=== PATIENT | male | born 1935 | race Caucasian/White ===

== ENCOUNTER 2017-08-19 07:33 | Inpatient (IN) | payer MEDICARE, OTHER ==
[2017-08-16 11:19] VITALS: BMI 24.2
[2017-08-19] MEDS ORDERED: Midazolam 2 MG/2 ML VIAL ONE (10:08)
[2017-08-19] MEDS ORDERED: Iodixanol 320 MG/ML 100 ML BOTTLE IV ONE (10:10)
[2017-08-19] MEDS ORDERED: Perflutren Lipid Microsphere 1.5 ML SUS IV ONE (10:19)
[2017-08-19 10:40] LABS: ARTERIAL BLOOD HGB O2 SAT 96.2 % (95.0-98.0); CARBOXYHEMOGLOBIN 2.1 % (0.5-1.5); DRAW SITE AO; HHB 0.5 % (0.0-5.0); METHEMOGLOBIN 1.2 % (0.0-3.0)
[2017-08-19 10:43] LABS: DRAW SITE PA; VENOUS BLOOD GAS PCO2 45 mmHg (40-60); VENOUS BLOOD PH 7.38 (7.32-7.43)
[2017-08-19] MEDS ORDERED: Metoprolol Succinate 25 mg XL Tab PO SCH (11:15)
[2017-08-19 16:14] VITALS: TEMP 98.6
--- NOTE | 2017-08-19 17:20 | CP.PCM.CON ---
<Cornell Hutson - Last Filed: 08/19/17 20:40> History of Present Illness - History of Present Illness History of Present Illness: PGY1 ICU consult note for Dr. Crews Patient is a 81M with a history of Alzheimer's disease, HTN who was seen by tool setter Dr. Love for cardiac cath today and was found to have triple vessel disease. Patient is currently comfortably resting in bed. Denies chest pain, shortness of breath, headache, abdominal pain, leg pain. Denies prior cardiac history. States he is hungry and would like to eat. Patient is here with his brother at bedside, who are both primarily Macedonian- speaking. PMH: Alzheimer's disease, HTN PSH: cataract surgery Meds: Namenda XR 28mg, Amlodipine 5mg, Lisinopril 10mg, Divalproex 125mg, Naproxen 500mg BID, Strovite 1 tab Allergies: NKDA Social hx: smoked 1ppd x 30 years - quit over 20 years ago, hx of ETOH use - not currently. denies drug use. Review of Systems - Review of Systems All systems: reviewed and no additional remarkable complaints except (as per HPI ) Past Patient History - Past Medical History & Family History Past Medical History?: Yes - Past Social History Smoking Status: Former Smoker - CARDIAC Hx Hypertension: Yes - PULMONARY Hx Respiratory Disorders: Yes (LUNG PAIN PER PT) - NEUROLOGICAL Hx Alzheimer's Disease: Yes - HEENT Hx HEENT Problems: Yes Hx Cataracts: Yes (BILAT IOL) - RENAL Hx Chronic Kidney Disease: No - ENDOCRINE/METABOLIC Hx Endocrine Disorders: No - HEMATOLOGICAL/ONCOLOGICAL Hx Blood Disorders: No - INTEGUMENTARY Hx Dermatological Problems: No - MUSCULOSKELETAL/RHEUMATOLOGICAL Hx Falls: No - GASTROINTESTINAL Hx Gastrointestinal Disorders: No - GENITOURINARY/GYNECOLOGICAL Hx Genitourinary Disorders: Yes (HX SYPHYLSIS ADOLESCENT TREATED) - PSYCHIATRIC Hx Substance Use: No - SURGICAL HISTORY Hx Surgeries: Yes Hx Cataract Extraction: Yes (BILAT IOL) - ANESTHESIA Hx Anesthesia: Yes Hx Anesthesia Reactions: No Hx Malignant Hyperthermia: No Has any member of the family had a problem w/ anesthesia?: No Meds Allergies/Adverse Reactions: Allergies Allergy/AdvReac Type Severity Reaction Status Date / Time No Known Allergies Allergy Verified 08/16/17 11:19 - Medications Medications: Current Medications Aspirin (Aspirin) 325 mg PO DAILY [facility] Last Admin: 08/19/17 16:02 Dose: 325 mg Clopidogrel Bisulfate (Plavix) 600 mg PO DAILY [facility] Last Admin: 08/19/17 16:02 Dose: 600 mg Metoprolol Succinate (Toprol Xl) 25 mg PO DAILY [facility] Last Admin: 08/19/17 16:02 Dose: 25 mg Rosuvastatin Calcium (Crestor) 40 mg PO HS [facility] Last Admin: 08/19/17 16:07 Dose: Not Given Physical Exam - Constitutional Appears: Well, No Acute Distress - Head Exam Head Exam: ATRAUMATIC - Eye Exam Eye Exam: EOMI, Normal appearance - ENT Exam ENT Exam: Mucous Membranes Moist - Neck Exam Neck exam: Positive for: Full Rom - Respiratory Exam Respiratory Exam: Clear to Auscultation Bilateral, NORMAL BREATHING PATTERN. absent: Accessory Muscle Use, Wheezes, Respiratory Distress - Cardiovascular Exam Cardiovascular Exam: REGULAR RHYTHM - Extremities Exam Extremities exam: Positive for: pedal pulses present. Negative for: calf tenderness, pedal edema - Neurological Exam Neurological exam: Alert, Oriented x3 - Psychiatric Exam Psychiatric exam: Normal Affect, Normal Mood - Skin Skin Exam: Dry, Warm Results - Vital Signs Recent Vital Signs: Last Vital Signs Temp 98.6 F 08/19/17 16:00 Pulse 82 08/19/17 16:10 Resp 10 L 08/19/17 16:10 BP 143/80 08/19/17 16:00 Pulse Ox 99 08/19/17 16:10 - Labs Labs: Laboratory Results - last 24 hr 08/19/17 08/19/17 10:35 10:36 Puncture Site Ao Pa pCO2 42 pO2 125 H 40 HCO3 26.7 ABG pH 7.42 ABG Total CO2 28.5 H ABG O2 Saturation 99.5 H ABG Base Excess 2.3 ABG Hemoglobin 15.6 ABG Carboxyhemoglobin 2.1 H POC ABG HHb (Measured) 0.5 ABG Methemoglobin 1.2 Henrique Test Na Na VBG pH 7.38 VBG pCO2 45 VBG HCO3 25.1 VBG O2 Sat (Calc) 79.7 H VBG Base Excess 1.0 Hgb O2 Saturation 96.2 Assessment & Plan - Assessment and Plan (Free Text) Assessment: 81 male with Alzheimers, HTN who presented to the hospital for an elective cardiac cath which reveals triple vessel disease, pending transfer to [facility] for CABG. Plan: Cardiovascular: Supervisor Roving Dr. Love, help appreciated Vitals Q15min Keep head of bed elevated at 30 degrees Dual antiplatelet therapy with ASA 325mg PO daily and Plavix 600mg PO daily Metoprolol 25mg PO Crestor 40mg HS PO Pending transfer to [facility] for CABG. EKG - NSR @81 bpm, normal axis, ST elevations in V1-V3, ST depressions in leads II, III, aVF - Dr. Love made aware of EKG changes. Repeat ekg approx. one hour later - NSR @78 bpm, normal axis, ST elevations in V1-V3, no ST depressions in leads II, III, aVF Trop - 0.0600; f/u two pending trops q8h started on heparin drip Patient's son, Kadeem, called to be informed of EKG changes. Patient's son states that he had not been informed of any results from any cardiac caths, and had not agreed to any transfer to another hospital. He states he does not want his father transferred anywhere. He wants the results from the cardiac cath today so he can get a second and/or third opinion. Resident Haresh informed him of the urgency of the situation and informed him that he will do the best to gather the information and get in contact with Dr. Love. Dr. Love called his medical student Kushal Vyas and resident Haresh spoke to Dr. Love and informed him of the son's wishes. Dr. Love given son's phone number, . He stated that he will call and speak to the son. Dr. Love informed the ICU team that he was enroute to [facility] to evaluate the patient. Upon Dr. Love's arrival to [facility], Patient was interviewed and stated that, "You are the experts. I trust you. Do what you have to due." Dr. Love called [facility] Transfer team and informed them that the transfer needed to be expedited due to emergent EKG changes. Patient appeared comfortable and was hemodynamically stable during examination. Neuro: Patient is alert, oriented, pleasant. Able to follow commands. Neurochecks Prophylactic Care: DVTs: SCDs Case discussed with Dr. Mars Sarabia Haresh PGY1 <Tee Crews - Last Filed: 08/19/17 20:43> Meds - Medications Medications: Current Medications Aspirin (Aspirin) 325 mg PO DAILY [facility] Last Admin: 08/19/17 16:02 Dose: 325 mg Clopidogrel Bisulfate (Plavix) 600 mg PO DAILY [facility] Last Admin: 08/19/17 16:02 Dose: 600 mg Heparin Sodium/Sodium Chloride (Heparin 59408 Units/250ml 1/2 Normal Saline) 25 ,000 units in 250 mls @ 6.84 mls/hr IV .Q24H PRN; Protocol; 12 UNITS/KG/HR PRN Reason: PROTOCOL Last Admin: 08/19/17 18:21 Dose: 12 units/kg/hr, 6.84 mls/hr Metoprolol Succinate (Toprol Xl) 25 mg PO DAILY [facility] Last Admin: 08/19/17 16:02 Dose: 25 mg Rosuvastatin Calcium (Crestor) 40 mg PO HS [facility] Last Admin: 08/19/17 16:07 Dose: Not Given Results - Vital Signs Recent Vital Signs: Last Vital Signs Temp 98.6 F 08/19/17 16:00 Pulse 89 08/19/17 19:25 Resp 17 08/19/17 19:25 BP 145/78 08/19/17 18:51 Pulse Ox 99 08/19/17 19:25 - Labs Labs: Laboratory Results - last 24 hr 08/19/17 08/19/17 08/19/17 10:35 10:36 16:45 Puncture Site Ao Pa pCO2 42 pO2 125 H 40 HCO3 26.7 ABG pH 7.42 ABG Total CO2 28.5 H ABG O2 Saturation 99.5 H ABG Base Excess 2.3 ABG Hemoglobin 15.6 ABG Carboxyhemoglobin 2.1 H POC ABG HHb (Measured) 0.5 ABG Methemoglobin 1.2 Henrique Test Na Na VBG pH 7.38 VBG pCO2 45 VBG HCO3 25.1 VBG O2 Sat (Calc) 79.7 H VBG Base Excess 1.0 Hgb O2 Saturation 96.2 Troponin I 0.0600 Attending/Attestation - Attestation I have personally seen and examined this patient.: Yes I have fully participated in the care of the patient.: Yes I have reviewed all pertinent clinical information: Yes Notes (Text): Today: , August 19, 2017 The Patient was seen and examined at the bedside, Medical records reviewed, and management issues were discussed and formulated with the house staff. I have reviewed all the relevant clinical, laboratory, hemodynamic, radiographic data and medications Events reviewed Pain issues, skin care, head of the bed elevation, glycemic control were addressed. Agree with above resident's assessment and treatment plans of care as transcribed in Dr. Hutson note. Discussed with the patient and his family in details diagnosis, treatment plans and alternatives, Code status: Full code Patient scheduled for transfer to [facility] for possible cardiac intervention
--- NOTE | 2017-08-19 17:43 | CP.PCM.HP ---
Past Patient History - Past Medical History & Family History Past Medical History?: Yes - Past Social History Smoking Status: Former Smoker - CARDIAC Hx Hypertension: Yes - PULMONARY Hx Respiratory Disorders: Yes (LUNG PAIN PER PT) - NEUROLOGICAL Hx Alzheimer's Disease: Yes - HEENT Hx HEENT Problems: Yes Hx Cataracts: Yes (BILAT IOL) - RENAL Hx Chronic Kidney Disease: No - ENDOCRINE/METABOLIC Hx Endocrine Disorders: No - HEMATOLOGICAL/ONCOLOGICAL Hx Blood Disorders: No - INTEGUMENTARY Hx Dermatological Problems: No - MUSCULOSKELETAL/RHEUMATOLOGICAL Hx Falls: No - GASTROINTESTINAL Hx Gastrointestinal Disorders: No - GENITOURINARY/GYNECOLOGICAL Hx Genitourinary Disorders: Yes (HX SYPHYLSIS ADOLESCENT TREATED) - PSYCHIATRIC Hx Substance Use: No - SURGICAL HISTORY Hx Surgeries: Yes Hx Cataract Extraction: Yes (BILAT IOL) - ANESTHESIA Hx Anesthesia: Yes Hx Anesthesia Reactions: No Hx Malignant Hyperthermia: No Has any member of the family had a problem w/ anesthesia?: No Meds Allergies/Adverse Reactions: Allergies Allergy/AdvReac Type Severity Reaction Status Date / Time No Known Allergies Allergy Verified 08/16/17 11:19 Physical Exam - Constitutional Appears: Well - Head Exam Head Exam: ATRAUMATIC, NORMAL INSPECTION, NORMOCEPHALIC - Eye Exam Eye Exam: EOMI, Normal appearance, PERRL Pupil Exam: NORMAL ACCOMODATION, PERRL - ENT Exam ENT Exam: Mucous Membranes Moist, Normal Exam - Neck Exam Neck exam: Positive for: Normal Inspection - Respiratory Exam Respiratory Exam: Decreased Breath Sounds - Cardiovascular Exam Cardiovascular Exam: REGULAR RHYTHM, +S1, +S2 - GI/Abdominal Exam GI & Abdominal Exam: Diminished Bowel Sounds, Soft - Rectal Exam Rectal Exam: Deferred Results - Vital Signs Recent Vital Signs: Last Vital Signs Temp 98.6 F 08/19/17 16:00 Pulse 82 08/19/17 16:10 Resp 10 L 08/19/17 16:10 BP 143/80 08/19/17 16:00 Pulse Ox 99 08/19/17 16:10 - Labs Labs: Laboratory Results - last 24 hr 08/19/17 08/19/17 08/19/17 10:35 10:36 16:45 Puncture Site Ao Pa pCO2 42 pO2 125 H 40 HCO3 26.7 ABG pH 7.42 ABG Total CO2 28.5 H ABG O2 Saturation 99.5 H ABG Base Excess 2.3 ABG Hemoglobin 15.6 ABG Carboxyhemoglobin 2.1 H POC ABG HHb (Measured) 0.5 ABG Methemoglobin 1.2 Henrique Test Na Na VBG pH 7.38 VBG pCO2 45 VBG HCO3 25.1 VBG O2 Sat (Calc) 79.7 H VBG Base Excess 1.0 Hgb O2 Saturation 96.2 Troponin I 0.0600
[2017-08-19] MEDS ORDERED: Heparin25000 units/250ml 1/2NS 25,000 UNITS/250 ML BAG IV PRN (17:48)
[2017-08-19 22:47] VITALS: BP 144/78; PULSE 73; RESP 17; O2SAT 98
--- NOTE | 2017-08-20 08:23 | CARDCATH ---
PROCEDURE DATE: 08/19/2017 INDICATIONS: Kadeem Glasgow is an 81-year-old male with past medical history significant for hypertension, dyslipidemia, mild dementia who was referred to me for evaluation of old anterior wall OR, severe LV systolic dysfunction with abnormal nuclear stress test and symptoms of dyspnea on exertion. The patient was medically managed and was noted to have symptoms of dyspnea on exertion, for which he was brought over to the labor relations teacher for further evaluation and treatment. PROCEDURES PERFORMED: Left heart catheterization with selective left and right coronary angiograms, right heart catheterization with hemodynamics and saturations, 6-British right femoral arterial access, distal abdominal aortogram for evaluation of . TECHNIQUES OF PROCEDURE: After obtaining informed consent, the patient was brought to the cardiac catheterization in post-absorptive, non-sedated state. The patient was prepped and draped in the usual sterile fashion. A 2% lidocaine was used for infiltration of anesthesia. Using modified Seldinger technique, 6-British sheath was introduced into the right femoral artery and 7-British sheath was introduced into the right femoral vein. Subsequently, under fluoroscopic guidance, with the balloon inflated, pulmonary capillary wedge catheter was serially advanced through the IVC into the RA, RV, PA and wedge positions. Hemodynamics along with saturations were obtained. RA mean pressures were 12, RVEDP 8, RV systolic pressure of 40, PA mean was 25, pulmonary capillary wedge pressure was 16. LEFT HEART CATHETERIZATION CORONARY ANATOMY: Left main, large-sized vessel, has ostial 60% stenosis and distal 85% to 90% stenosis. 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 Left circumflex, medium-sized vessel, gives off large obtuse marginal branch, which has a proximal 60% and a mid 80% stenosis. RCA, mid 65% and a distal 70% stenosis. LV gram was not obtained due to concern for a possible LV clot, which was diagnosed on an echocardiogram with contrast study back in May. IMPRESSION: Normal filling pressures, severe multivessel coronary artery disease, severe left ventricular known, severe left ventricular systolic dysfunction, left ventriculogram was not obtained. RECOMMENDATIONS: The patient is to be admitted to the ICU and transferred over to for further evaluation for CT surgery for possible CABG versus high risk PCI with Impella support. The patient will be approached with Heart team, approached with further evaluation after the CT surgery evaluation. We will continue the patient on guideline-directed therapy for CAD and CHF. Lewis Love MD
--- NOTE | 2017-08-22 09:46 | CARD ---
APPROVED REPORT EKG Measurement Heart [id number] [place] [id number] <Conclusion> Sinus rhythm with premature supraventricular complexes Right atrial enlargement Voltage criteria for left ventricular hypertrophy Anteroseptal infarct, possibly acute ACUTE DC / STEMI Abnormal ECG
--- NOTE | 2017-08-23 09:13 | CARD ---
APPROVED REPORT EKG Measurement Heart [id number] [place] [id number] <Conclusion> Sinus rhythm with occasional premature ventricular complexes Right atrial enlargement Voltage criteria for left ventricular hypertrophy Anteroseptal infarct, age undetermined Abnormal ECG
== END 2017-08-19 22:50 | disposition short-term general hospital (02) | DRG 287 ==
LOC: C.CATHLAB 07:33 → C.9I 11:25
PROVIDERS: ADMIT Internal Medicine Nephrology; ATTEND Internal Medicine Nephrology
PROC: B2111ZZ Fluoroscopy of Multiple Coronary Arteries using Low Osmolar Contrast (ICD-10-PCS; 2017-08-19)
PROC: 4A023N8 Measurement of Cardiac Sampling and Pressure, Bilateral, Percutaneous Approach (ICD-10-PCS; principal; 2017-08-19 08:00)
PROC: B2161ZZ Fluoroscopy of Right and Left Heart using Low Osmolar Contrast (ICD-10-PCS; 2017-08-19 08:00)
DX: I25.10 Atherosclerotic heart disease of native coronary artery without angina pectoris (principal); G30.9 Alzheimer's disease, unspecified; E78.5 Hyperlipidemia, unspecified; F02.80 Dementia in other diseases classified elsewhere, unspecified severity, without behavioral disturbance, psychotic disturbance, mood disturbance, and anxiety; I10 Essential (primary) hypertension; R94.31 Abnormal electrocardiogram [ECG] [EKG]; R93.1 Abnormal findings on diagnostic imaging of heart and coronary circulation; Z96.1 Presence of intraocular lens; I25.2 Old myocardial infarction; Z87.891 Personal history of nicotine dependence; Z98.49 Cataract extraction status, unspecified eye